=== PATIENT | female | born 1980 | race American Indian/Alaskan Native ===

== ENCOUNTER 2018-07-12 12:13 | Emergency (ER) | payer OTHER ==
[2018-07-12 13:33] LABS: Hematocrit 39.6 % (30.3-42.9); Hemoglobin 12.6 gm/dl (10.1-14.3); Mean Corpuscular HGB Conc 32 % (30-34); Mean Corpuscular Volume 79 fl (79-97); Platelet Count 328 K/mm3 (140-440); Red Blood Count 5.01 M/mm3 (3.65-5.03); Red Cell Distribution Width 16.4 % (13.2-15.2)
[2018-07-12 13:34] LABS: Mean Corpuscular Hemoglobin 25 pg (28-32)
[2018-07-12 13:52] LABS: BUN/Creatinine Ratio 11; Blood Urea Nitrogen 8 mg/dL (7-17); Calcium 8.9 mg/dL (8.4-10.2); Hemolysis Index 21
[2018-07-12] MEDS ORDERED: ZOFRAN IV ONE (13:55)
[2018-07-12] MEDS ORDERED: MORPHINE IV ONE (13:55)
--- NOTE | 2018-07-12 13:58 | Emergency Department Report ---
<GRAYSON JONES - Last Filed: 07/12/18 13:56> ED Abdominal Pain HPI - General Chief Complaint: Abdominal Pain Stated Complaint: SHARP RIGHT PAIN Time Seen by Provider: 07/12/18 13:51 Source: patient Mode of arrival: Ambulatory Limitations: No Limitations - History of Present Illness Initial Comments: Ms. Tsang has hx of HTN and reflux. Hx of myomectomy. Complaint: abdominal pain -: Gradual, This morning Location: RLQ Radiation: none Migration to: no migration Severity: moderate Quality: sharp Consistency: constant Worsens With: movement, other (walking) - Related Data Home Medications Medication Instructions Recorded Confirmed Last Taken Lisinopril [Zestril TAB] 5 mg PO QDAY 10/19/13 10/19/13 10/18/13 Pantoprazole [Protonix] 40 mg PO DAILY 10/19/13 10/19/13 10/18/13 Venlafaxine Xr [Effexor XR] 75 mg PO DAILY 10/19/13 10/19/13 10/18/13 Previous Rx's Medication Instructions Recorded Last Taken Type Ondansetron [Zofran] 4 mg PO Q6HR PRN #12 tablet 10/19/13 Unknown Rx oxyCODONE /ACETAMINOPHEN [Percocet 1 tab PO Q6HR PRN #14 tablet 10/19/13 Unknown Rx 5/325 mg] Acetaminophen/Codeine [Tylenol 1 tab PO Q6H PRN #12 tab 07/12/18 Unknown Rx /Codeine # 3 tab] Docusate Sodium [Colace] 100 mg PO BID PRN #14 capsule 07/12/18 Unknown Rx Ibuprofen [Motrin] 600 mg PO Q8H PRN #20 tablet 07/12/18 Unknown Rx Allergies Allergy/AdvReac Type Severity Reaction Status Date / Time Sulfa (Sulfonamide Allergy Rash Verified 07/12/18 12:36 Antibiotics) ED Review of Systems ROS: Stated complaint: SHARP RIGHT PAIN Other details as noted in HPI Comment: All other systems reviewed and negative Constitutional: denies: fever Gastrointestinal: abdominal pain, nausea. denies: vomiting ED Past Medical Hx - Past Medical History Hx Hypertension: Yes Hx Psychiatric Treatment: Yes - Surgical History Additional Surgical History: myomectomy - Social History Smoking Status: Never Smoker Substance Use Type: None - Medications Home Medications: Home Medications Medication Instructions Recorded Confirmed Last Taken Type Lisinopril [Zestril TAB] 5 mg PO QDAY 10/19/13 10/19/13 10/18/13 History Ondansetron [Zofran] 4 mg PO Q6HR PRN #12 tablet 10/19/13 Unknown Rx Pantoprazole [Protonix] 40 mg PO DAILY 10/19/13 10/19/13 10/18/13 History Venlafaxine Xr [Effexor XR] 75 mg PO DAILY 10/19/13 10/19/13 10/18/13 History oxyCODONE /ACETAMINOPHEN [Percocet 1 tab PO Q6HR PRN #14 tablet 10/19/13 Unknown Rx 5/325 mg] Acetaminophen/Codeine [Tylenol 1 tab PO Q6H PRN #12 tab 07/12/18 Unknown Rx /Codeine # 3 tab] Docusate Sodium [Colace] 100 mg PO BID PRN #14 capsule 07/12/18 Unknown Rx Ibuprofen [Motrin] 600 mg PO Q8H PRN #20 tablet 07/12/18 Unknown Rx ED Physical Exam - General Limitations: No Limitations General appearance: alert, in no apparent distress - Head Head exam: Present: atraumatic, normocephalic - Eye Eye exam: Present: normal appearance - ENT ENT exam: Present: mucous membranes moist - Neck Neck exam: Present: normal inspection - Respiratory Respiratory exam: Present: normal lung sounds bilaterally. Absent: respiratory distress - Cardiovascular Cardiovascular Exam: Present: regular rate, normal rhythm. Absent: systolic murmur, diastolic murmur, rubs, gallop - GI/Abdominal GI/Abdominal exam: Present: soft, tenderness (right lower quadrant), guarding ( voluntary). Absent: distended, rebound, rigid - Extremities Exam Extremities exam: Present: normal inspection - Back Exam Back exam: Present: normal inspection - Neurological Exam Neurological exam: Present: alert, oriented X3 - Psychiatric Psychiatric exam: Present: normal affect, normal mood - Skin Skin exam: Present: warm, dry, intact, normal color. Absent: rash ED Course Vital Signs 07/12/18 12:36 Temperature 98.8 F Pulse Rate 73 Respiratory 18 Rate Blood Pressure 155/91 O2 Sat by Pulse 100 Oximetry ED Medical Decision Making - Lab Data Result diagrams: 07/12/18 13:22 07/12/18 13:16 Laboratory Results - last 24 hr 07/12/18 07/12/18 13:16 13:22 WBC 3.7 L RBC 5.01 Hgb 12.6 Hct 39.6 MCV 79 MCH 25 L MCHC 32 RDW 16.4 H Plt Count 328 Sodium 135 L Potassium 3.5 L Chloride 100.5 Carbon Dioxide 21 L Anion Gap 17 BUN 8 Creatinine 0.7 Estimated GFR > 60 BUN/Creatinine Ratio 11 Glucose 87 Calcium 8.9 Critical care attestation.: If time is entered above; I have spent that time in minutes in the direct care of this critically ill patient, excluding procedure time. ED Disposition Clinical Impression: Fibroids Constipation Qualifiers: Constipation type: unspecified constipation type Qualified Code(s): K59.00 - Constipation, unspecified Abdominal pain Qualifiers: Abdominal location: right lower quadrant Qualified Code(s): R10.31 - Right lower quadrant pain Disposition: TO HOME OR SELFCARE Condition: Stable Instructions: Abdominal Pain (ED), Uterine Fibroids (ED), Acetaminophen/ Codeine (By mouth), Constipation (ED), High Fiber Diet (ED) Additional Instructions: Follow-up with a primary care/obgyn doctor in 3-5 days or if symptoms worsen and continue return to emergency room as soon as possible. Do not operate any machinery while taking Tylenol with codeine as this may cause drowsiness. Prescriptions: Acetaminophen/Codeine [Tylenol /Codeine # 3 tab] 1 tab PO Q6H PRN #12 tab PRN Reason: Pain , Severe (7-10) Docusate Sodium [Colace] 100 mg PO BID PRN #14 capsule PRN Reason: Constipation Ibuprofen [Motrin] 600 mg PO Q8H PRN #20 tablet PRN Reason: Pain Referrals: PRIMARY CAREMD [Referring] - 3-5 Days BHAVNA JACOME MD [Staff Physician] - 3-5 Days ESTELLA GUSMAN MD [Staff Physician] - 3-5 Days [facility] [Outside] - 3-5 Days Forms: Work/School Release Form(ED) <ARIAS AMES - Last Filed: 07/12/18 18:07> ED Physical Exam - GI/Abdominal GI/Abdominal exam: Present: tenderness, guarding ED Medical Decision Making - Lab Data Result diagrams: 07/12/18 13:22 07/12/18 13:16 - Medical Decision Making Patient was signed out to me by Dr. Robert V. for a pending CT scan results. As per Dr. Jones patient may have appendicitis with RLQ pain. Upon quick exam during discharge, patient stated that pain has resolved and subsided. Patient stated that pain started this morning only to the RLQ. Labs unremarkable. Patient is eating and drinking with no signs of nausea or vomiting. Patient was notified of the CT report with no questions or by the patient. Patient stated that she does feel much better and pain has resolved. Patient was notified of strict precatuions of appendictis symptoms and to return to the ED if symptoms occurs as soon as possible. Patient was also instructed to Follow- up with a primary care doctor in 3-5 days or if symptoms worsen and continue return to emergency room as soon as possible. At time of discharge, the patient does not seem toxic or ill in appearance. No acute signs of distress noted. Patient agrees to discharge treatment plan of care. No further questions noted by the patient. ED Disposition Is pt being admited?: No Does the pt Need Aspirin: No
[2018-07-12 13:59] LABS: Bacteria,Urine 1+ /HPF (Negative); Bilirubin,Urine NEG (Negative); Blood,Urine NEG (Negative); Color,Urine Straw (Yellow); Protein,Urine <15 mg/dL mg/dL (Negative); Urobilinogen,Urine < 2.0 mg/dL (<2.0)
[2018-07-12 14:04] LABS: HCG Qualitative,Urine Negative (Negative); WBC,Urine < 1.0 /HPF (0.0-6.0)
[2018-07-12] MEDS ORDERED: PERCOCET 5/325 PO ONE (14:10)
--- NOTE | 2018-07-12 17:31 | Cat Scan Report ---
FINAL REPORT EXAM: CT ABDOMEN PELVIS WO CON HISTORY: RLQ pain TECHNIQUE: Axial images were performed from the lung bases to the pubic symphysis. Multiplanar reformats are performed on the acquisition scanner. Total exam DLP 623.62 mGy-cm Comparison: None FINDINGS: Clear lung bases. Unremarkable unenhanced liver, spleen, pancreas, gallbladder, bilateral adrenal glands and bilateral kidneys. There is oral contrast in the stomach, small bowel, and colon to the level of the distal transverse colon. Normal appendix right lower quadrant has both air and contrast in it. Adjacent to the appendix, there is 1.5 x 1.5 centimeter right adnexal cystic lesion. There is a 2.7 x 2.3 centimeter left adnexal cystic lesion. Pelvic phleboliths. Rectosigmoid fecal retention. Small-bowel enterocele projecting in the bony pelvis deep behind the cul-de-sac. Minimally distended urinary bladder. Normally anteverted uterus. Age-appropriate prominent [facility] structures. There are small retroperitoneal lymph nodes. Imaged axial skeleton is unremarkable. The coronal reconstructed images demonstrate prominent bilateral adnexal and bilateral adnexal cysts. Uterus is lobular and slightly enlarged. There appears to be a Caesarean section calcified scar of the lower uterine segment. No free air or free fluid. IMPRESSION: Normal appendix right lower quadrant. Bilateral adnexal cystic lesions and prominent adnexal bilaterally. Anteverted lobular uterus with at least 1 serosal fundal fibroid identified. Recommend pelvic ultrasound. No definite free air or free fluid. Small bowel enterocele in the recto uterine pouch. Probable Caesarean section scar is calcified in the lower uterine segment.
[2018-07-12 18:32] VITALS: BP 141/83
== END 2018-07-12 18:28 | disposition home or self-care (01) ==
LOC: ED 12:13
DX: K59.00 Constipation, unspecified (principal); D25.9 Leiomyoma of uterus, unspecified; I10 Essential (primary) hypertension; Z88.2 Allergy status to sulfonamides
CPT/HCPCS: 36415; 74176; 80048; 81001; 81025; 85027; 99284; J2270; J2405

== ENCOUNTER 2019-07-20 07:38 | Observation (INO) | payer OTHER ==
[2019-07-20 08:39] LABS: Basophils % (Auto) 1.1 % (0.0-1.8); Eosinophils # (Auto) 0.1 K/mm3 (0.0-0.4); Eosinophils % (Auto) 2.8 % (0.0-4.3); Hematocrit 40.2 % (30.3-42.9); Hemoglobin 12.8 gm/dl (10.1-14.3); Lymphocytes # (Auto) 0.8 K/mm3 (1.2-5.4); Lymphocytes % (Auto) 28.6 % (13.4-35.0); Mean Corpuscular HGB Conc 32 % (30-34); Mean Corpuscular Volume 79 fl (79-97); Monocytes # (Auto) 0.2 K/mm3 (0.0-0.8); Platelet Count 336 K/mm3 (140-440); Red Blood Count 5.09 M/mm3 (3.65-5.03); Red Cell Distribution Width 17.4 % (13.2-15.2)
[2019-07-20 08:48] LABS: INR 0.98 (0.87-1.13)
[2019-07-20 08:49] LABS: Partial Thromboplastin Time 27.3 Sec. (24.2-36.6)
[2019-07-20 09:05] LABS: Alanine Aminotransferase 9 units/L (7-56); Albumin 4.8 g/dL (3.9-5); BUN/Creatinine Ratio 13; Blood Urea Nitrogen 9 mg/dL (7-17); Calcium 8.9 mg/dL (8.4-10.2); Hemolysis Index 3
--- NOTE | 2019-07-20 09:25 | Emergency Department Report ---
ED Chest Pain HPI - General Chief Complaint: Chest Pain Stated Complaint: CHEST PAIN Time Seen by Provider: 07/20/19 09:23 Source: patient Mode of arrival: Ambulatory Limitations: No Limitations - History of Present Illness Initial Comments: 38-year-old -[place] female presents to the emergency room complaining of midsternal chest pain that started last night. Patient reports that is worse with a deep breath. Patient states that she had her blood pressure checked at her job and it was 180/105 with a heart rate of 150. Patient also complained of a headache located in the back of her head. Patient reports that she feels weak and tired area patient reports that the chest pain is intermittent. She complains of shortness of breath with exertion. Nothing makes it better. Patient is not on control and has not recently traveled. Patient has no cancers. She does have an allergy to lisinopril which causes a cough. Patient has a past medical history of hypertension does not know what medication she is on an GERD which she reports on Protonix. Patient has a primary care provider at [facility]. She states that she thought her symptoms was temperature may have caught from the patient. 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 Complaint: chest pain -: Last night Onset: during exertion (sob) Pain Location: substernal Pain Radiation: neck Severity: moderate Consistency: intermittent Improves With: nothing Worsens With: inspiration Other Symptoms: palpitations. denies: cough, fever Aspirin use within the Past 7 Days: (0) No - Related Data On Oral Contraceptives: No Home Medications Medication Instructions Recorded Confirmed Last Taken Lisinopril [Zestril TAB] 5 mg PO QDAY 10/19/13 10/19/13 10/18/13 Pantoprazole [Protonix] 40 mg PO DAILY 10/19/13 10/19/13 10/18/13 Venlafaxine Xr [Effexor XR] 75 mg PO DAILY 10/19/13 10/19/13 10/18/13 Previous Rx's Medication Instructions Recorded Last Taken Type Ondansetron [Zofran] 4 mg PO Q6HR PRN #12 tablet 10/19/13 Unknown Rx oxyCODONE /ACETAMINOPHEN [Percocet 1 tab PO Q6HR PRN #14 tablet 10/19/13 Unknown Rx 5/325 mg] Acetaminophen/Codeine [Tylenol 1 tab PO Q6H PRN #12 tab 07/12/18 Unknown Rx /Codeine # 3 tab] Docusate Sodium [Colace] 100 mg PO BID PRN #14 capsule 07/12/18 Unknown Rx Ibuprofen [Motrin] 600 mg PO Q8H PRN #20 tablet 07/12/18 Unknown Rx Allergies Allergy/AdvReac Type Severity Reaction Status Date / Time Sulfa (Sulfonamide Allergy Rash Verified 07/12/18 12:36 Antibiotics) Heart Score - HEART Score History: Slightly suspicious Age: < 45 Risk factors: 1-2 risk factors Troponin: 1-3x normal limit ED Review of Systems ROS: Stated complaint: CHEST PAIN Other details as noted in HPI Respiratory: SOB with exertion Cardiovascular: chest pain ED Past Medical Hx - Past Medical History Previous Medical History?: Yes Hx Hypertension: Yes Hx Psychiatric Treatment: Yes - Surgical History Past Surgical History?: Yes Additional Surgical History: myomectomy - Social History Smoking Status: Current Some Day Smoker Substance Use Type: None - Medications Home Medications: Home Medications Medication Instructions Recorded Confirmed Last Taken Type Lisinopril [Zestril TAB] 5 mg PO QDAY 10/19/13 10/19/13 10/18/13 History Ondansetron [Zofran] 4 mg PO Q6HR PRN #12 tablet 10/19/13 Unknown Rx Pantoprazole [Protonix] 40 mg PO DAILY 10/19/13 10/19/13 10/18/13 History Venlafaxine Xr [Effexor XR] 75 mg PO DAILY 10/19/13 10/19/13 10/18/13 History oxyCODONE /ACETAMINOPHEN [Percocet 1 tab PO Q6HR PRN #14 tablet 10/19/13 Unknown Rx 5/325 mg] Acetaminophen/Codeine [Tylenol 1 tab PO Q6H PRN #12 tab 07/12/18 Unknown Rx /Codeine # 3 tab] Docusate Sodium [Colace] 100 mg PO BID PRN #14 capsule 07/12/18 Unknown Rx Ibuprofen [Motrin] 600 mg PO Q8H PRN #20 tablet 07/12/18 Unknown Rx ED Physical Exam - General Limitations: No Limitations General appearance: alert, in no apparent distress - Head Head exam: Present: atraumatic, normocephalic - Eye Eye exam: Present: normal appearance - ENT ENT exam: Present: mucous membranes moist - Neck Neck exam: Present: normal inspection, full ROM. Absent: tenderness, lymphadenopathy - Respiratory Respiratory exam: Present: normal lung sounds bilaterally. Absent: respiratory distress - Cardiovascular Cardiovascular Exam: Present: irregular rhythm - GI/Abdominal GI/Abdominal exam: Present: soft, normal bowel sounds. Absent: distended - Extremities Exam Extremities exam: Present: normal inspection, full ROM. Absent: tenderness - Back Exam Back exam: Present: normal inspection - Neurological Exam Neurological exam: Present: alert, oriented X3 - Psychiatric Psychiatric exam: Present: normal affect, normal mood - Skin Skin exam: Present: warm, dry, intact, normal color. Absent: rash ED Course Vital Signs 07/20/19 07/20/19 07:46 09:28 Temperature 97.6 F 97.5 F L Pulse Rate 87 72 Respiratory 18 14 Rate Blood Pressure 147/90 Blood Pressure 91/44 [Left] O2 Sat by Pulse 100 100 Oximetry ARTURO score - Arturo Score Age > 65: (0) No Aspirin use within the Past 7 Days: (0) No 3 or more CAD Risk Factors: (0) No ED Medical Decision Making - Lab Data Result diagrams: 07/20/19 08:07 07/20/19 08:07 - Radiology Data Radiology results: report reviewed Chest x-ray shows no acute findings - Medical Decision Making 38-year-old -[place] female presents to the emergency room complaining of midsternal chest pain that started last night. Patient reports that is worse with a deep breath. Patient states that she had her blood pressure checked at her job and it was 180/105 with a heart rate of 150. Patient also complained of a headache located in the back of her head. Patient reports that she feels weak and tired area patient reports that the chest pain is intermittent. She complains of shortness of breath with exertion. Nothing makes it better. Patient is not on control and has not recently traveled. Patient has no cancers. She does have an allergy to lisinopril which causes a cough. Patient has a past medical history of hypertension does not know what medication she is on an GERD which she reports on Protonix. Patient has a primary care provider at [facility] in [place]. She states that she thought her symptoms was temperature may have caught from the patient. 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 Critical care attestation.: If time is entered above; I have spent that time in minutes in the direct care of this critically ill patient, excluding procedure time. ED Disposition Condition: Stable
--- NOTE | 2019-07-20 09:31 | XRay Report ---
CHEST 2 VIEWS INDICATION / CLINICAL INFORMATION: Chest pain and shortness of breath since yesterday. Occasional cough without fever. COMPARISON: None available. FINDINGS: SUPPORT DEVICES: None. HEART / MEDIASTINUM: The heart size and pulmonary vasculature are normal. The aorta is normal in willie elliot. LUNGS / PLEURA: No significant pulmonary or pleural abnormality. No pneumothorax. ADDITIONAL FINDINGS: No significant additional findings. IMPRESSION: No acute findings. Signer Name: Kelton Vyas MD Signed: 07/20/2019 9:26 AM Workstation Name: [id number]
[2019-07-20] MEDS ORDERED: SODIUM CHLORIDE 0.9% 1000 ML 1,000 ML IV ONE (09:42)
[2019-07-20] MEDS ORDERED: MORPHINE 2 MG/1 ML INJ IV PRN (12:15)
[2019-07-20] MEDS ORDERED: ACETAMINOPHEN 325 MG TAB PO PRN (12:15)
[2019-07-20] MEDS ORDERED: ONDANSETRON 4 MG/2 ML INJ IV PRN (12:15)
[2019-07-20] MEDS ORDERED: ALBUTEROL 2.5 MG/3 ML NEBU IH PRN (12:15)
[2019-07-20] MEDS ORDERED: IBUPROFEN 600 MG TAB PO PRN (12:18)
[2019-07-20] MEDS ORDERED: NON-FORMULARY EACH (Ondansetron [Zofran Tab] 4 MG) PO PRN (12:18)
[2019-07-20] MEDS ORDERED: DOCUSATE SODIUM 100 MG CAP PO PRN (12:18)
[2019-07-20] MEDS ORDERED: oxyCODONE /ACETAMINOPHEN 5-325MG TAB PO PRN (12:18)
[2019-07-20] MEDS ORDERED: ACETAMINOPHEN W/CODEINE 300-30 MG TAB PO PRN (12:18)
--- NOTE | 2019-07-20 12:20 | History and Physical Report ---
History of Present Illness Chief complaint: My chest hurts History of present illness: 38 YO Female with Anxiety, GERD, HTN, Nicotine Dependence presents to ED for evaluation. Pt states that she experienced acute onset of pain in her chest that awoke her from sleep last night. Pt states that pain qas 6-7/10, intermittent, worsened with deep breathing. Pt awoke from sleep this morning and went to work with the same symptoms. Pt underwent a blood pressure check at [facility] and was found to have blood pressure of 180/105 and a heart rate in the 160's. Pt also reports decreased exercise tolerance, shortness of breath, dypsnea with exertion. Pt transported to [facility] via private vehicle. Pt seen and evaluated in ED and found to have Angina as well as symptoms consistent for diastolic CHF. Pt admitted to medical floor with remote telemetry. Cardiology consulted. No prior admission for review. All listed medication reconciled at time of admission. Pt denies fever, chills, NVD, Trauma, BRBPR, Productive cough, unintentional weight loss, night sweats, unilateral leg swelling, calf pain, hemoptysis, prolonged travel/immobility, skin rash, or recent ill contacts. Past History Past Medical History: other (see hpi) Past Surgical History: Other (myomectomy) Social history: , smoking. denies: alcohol abuse, prescription drug abuse Family history: hypertension Medications and Allergies Allergies Allergy/AdvReac Type Severity Reaction Status Date / Time Sulfa (Sulfonamide Allergy Rash Verified 07/12/18 12:36 Antibiotics) Home Medications Medication Instructions Recorded Confirmed Last Taken Type Pantoprazole [Protonix] 40 mg PO DAILY 10/19/13 07/20/19 07/19/19 08:00 History Active Meds: Active Medications Acetaminophen (Tylenol) 650 mg PO Q4H PRN PRN Reason: Pain MILD(1-3)/Fever >100.5/MAYERS Acetaminophen/Codeine Phosphate (Tylenol #3) 1 tab PO Q6H PRN PRN Reason: Pain , Severe (7-10) Albuterol (Proventil) 2.5 mg IH Q4HRT PRN PRN Reason: Shortness Of Breath Docusate Sodium (Colace) 100 mg PO BID PRN PRN Reason: Constipation Famotidine (Pepcid) 10 mg PO BID RHONDA Ibuprofen (Ibuprofen) 600 mg PO Q8H PRN PRN Reason: PAIN Lisinopril (Zestril) 5 mg PO QDAY RHONDA Miscellaneous Medication (Ondansetron [Zofran Tab]) 4 mg PO Q6HR PRN PRN Reason: Nausea Morphine Sulfate (Morphine) 2 mg IV Q4H PRN PRN Reason: Pain, Moderate (4-6) Ondansetron HCl (Zofran) 4 mg IV Q8H PRN PRN Reason: Nausea And Vomiting Oxycodone/Acetaminophen (Percocet 5/325) 1 tab PO Q6HR PRN PRN Reason: PAIN Pantoprazole Sodium (Protonix) 40 mg PO DAILY RHONDA Sodium Chloride (Sodium Chloride Flush Syringe 10 Ml) 10 ml IV BID RHONDA Sodium Chloride (Sodium Chloride Flush Syringe 10 Ml) 10 ml IV PRN PRN PRN Reason: LINE FLUSH Review of Systems Constitutional: no weight loss, no weight gain, no fever, no chills Ears, nose, mouth and throat: no ear pain, no ear discharge, no tinnitis, no decreased hearing, no nose pain, no nasal congestion Breasts: no change in shape, no swelling, no mass Cardiovascular: chest pain, rapid/irregular heart beat, dyspnea on exertion, decreased exercise tolerance, no edema, no syncope Respiratory: pleurisy, no cough, no cough with sputum, no excessive sputum Gastrointestinal: no abdominal pain, no nausea, no vomiting, no diarrhea, no constipation, no change in bowel habits Genitourinary Female: no pelvic pain, no flank pain, no menorrhagia, no dysuria, no urinary frequency, no urgency Rectal: no pain, no incontinence, no bleeding Musculoskeletal: no neck stiffness, no neck pain, no shooting arm pain, no arm numbness/tingling, no low back pain, no shooting leg pain, no leg numbness/tingling Integumentary: no rash, no pruritis, no redness, no wounds, no jaundice, no boils Neurological: no transient paralysis, no paralysis, no weakness, no parathesias, no numbness, no tingling, no seizures Psychiatric: anxiety, no memory loss, no change in sleep habits, no sleep disturbances, no insomnia, no change in appetite, no change in libido Endocrine: no cold intolerance, no heat intolerance, no polyphagia, no excessive thirst, no polydipsia, no polyuria, no nocturia, no excessive sweating Hematologic/Lymphatic: no easy bruising, no easy bleeding, no lymphadenopathy, no lymphedema Allergic/Immunologic: no urticaria, no wheezing, no persistent infections, no anaphylaxis Exam - Constitutional Vitals: Temp Pulse Resp BP Pulse Ox 97.5 F L 72 14 91/44 100 07/20/19 09:28 07/20/19 09:28 07/20/19 09:28 07/20/19 09:28 07/20/19 09:28 General appearance: Present: no acute distress, well-nourished - EENT Eyes: Present: PERRL ENT: hearing intact, clear oral mucosa - Neck Neck: Present: supple, normal ROM - Respiratory Respiratory effort: normal Respiratory: bilateral: CTA - Cardiovascular Heart Sounds: Present: S1 & S2. Absent: rub, click - Extremities Extremities: pulses symmetrical, No edema Peripheral Pulses: within normal limits - Abdominal General gastrointestinal: Present: soft, non-tender, non-distended, normal bowel sounds Female genitourinary: Present: normal - Integumentary Integumentary: Present: clear, warm, dry - Musculoskeletal Musculoskeletal: gait normal, strength equal bilaterally - Psychiatric Psychiatric: appropriate mood/affect, intact judgment & insight - Neurologic Neurologic: CNII-XII intact, moves all extremities Results - Labs CBC & Chem 7: 07/20/19 08:07 07/20/19 08:07 Labs: Abnormal lab results 07/20/19 07/20/19 Range/Units 08:07 08:07 WBC 2.8 L (4.5-11.0) K/mm3 RBC 5.09 H (3.65-5.03) M/mm3 MCH 25 L (28-32) pg RDW 17.4 H (13.2-15.2) % [place] % (Auto) 8.0 H (0.0-7.3) % Lymph # 0.8 L (1.2-5.4) K/mm3 Seg Neutrophils # 1.7 L (1.8-7.7) K/mm3 Total Protein 8.7 H (6.3-8.2) g/dL Assessment and Plan - Patient Problems (1) Angina at rest Current Visit: Yes Status: Acute Plan to address problem: serial cardiac enzymes, ekg, remote telemetry, cardiology consulted, PPI therapy (2) Diastolic CHF Current Visit: Yes Status: Acute Qualifiers: Heart failure chronicity: acute Qualified Code(s): I50.31 - Acute diastolic (congestive) heart failure Plan to address problem: BNP, D dimer, Echo, cardiology consulted, strict I/O, daily weight, supplemental oxygen, blood pressure control, (3) Anxiety Current Visit: Yes Status: Acute Plan to address problem: Ativan prn, supportive care, Outpatient psychiatry f/U care. (4) GERD (gastroesophageal reflux disease) Current Visit: Yes Status: Acute Qualifiers: Esophagitis presence: without esophagitis Qualified Code(s): K21.9 - Gastro-esophageal reflux disease without esophagitis Plan to address problem: PPI therapy, (5) Nicotine dependence Current Visit: Yes Status: Acute Qualifiers: Substance use status: in withdrawal Plan to address problem: +15 min smoking cessation counseling, supportive care. (6) DVT prophylaxis Current Visit: Yes Status: Acute Plan to address problem: SCD to BLE while in bed, Pt ambulatory
[2019-07-20] MEDS ORDERED: ONDANSETRON 4 MG ODT TAB PO PRN (12:45)
[2019-07-20 12:48] LABS: Amphetamine Screen,Urine PRESUMPTIVE NEGATIVE; Benzodiazepines Screen,Urine PRESUMPTIVE NEGATIVE; Cocaine Screen,Urine PRESUMPTIVE NEGATIVE; Methadone Screen,Urine PRESUMPTIVE NEGATIVE; Opiate Screen,Urine PRESUMPTIVE NEGATIVE
[2019-07-20 13:00] LABS: Cannabinoid Screen,Urine PRESUMPTIVE POSITIVE
[2019-07-20] MEDS ORDERED: NITROGLYCERIN 0.4 MG TAB SUBL SL PRN (13:51)
[2019-07-20 14:39] LABS: Chol/HDL Ratio 2.32 %
[2019-07-20] MEDS: ASPIRIN 300 MG RECT SUPP PR SCH (17:06)
[2019-07-20] MEDS: FAMOTIDINE 10 MG TAB PO SCH (21:37)
[2019-07-21] MEDS: PANTOPRAZOLE 40 MG TAB PO SCH (09:53)
[2019-07-21] MEDS ORDERED: LISINOPRIL 5 MG TAB PO SCH (10:00)
[2019-07-21] MEDS ORDERED: VENLAFAXINE XR 75 MG CAP PO SCH (10:00)
--- NOTE | 2019-07-21 10:01 | Consultation ---
History of Present Illness Consult date: 07/21/19 Consult reason: chest pain, congestive heart failure History of present illness: This is a 38 year old woman that is employed with [employer]. Patient reports experiencing palpitations, shortness of breath with diaphoresis while at work on yesterday. There was no syncope. Patient reports an ECG was done in the office with a reported heart rate of 160. Strips are not available for review. Patient was sent to the emergency department for further evaluation. While in the emergency department, patient also complains of chest pain. Patient describes chest pain that is worse with deep inspirations and position changes. She denies prior cardiac workup. Reports a history of hypertension and GERD. 12 lead ECG is sinus rhythm, no acute ischemic changes. Past History Social history: , smoking. denies: alcohol abuse, prescription drug abuse Family history: hypertension Medications and Allergies Allergies Allergy/AdvReac Type Severity Reaction Status Date / Time Sulfa (Sulfonamide Allergy Rash Verified 07/12/18 12:36 Antibiotics) Home Medications Medication Instructions Recorded Confirmed Last Taken Type Docusate Sodium [Colace CAP] 100 mg PO BID PRN #60 capsule 07/21/19 Unknown Rx Lisinopril [Zestril TAB] 5 mg PO QDAY #30 tablet 07/21/19 Unknown Rx Pantoprazole [Protonix TAB] 40 mg PO DAILY #30 07/21/19 Unknown Rx Active Meds: Active Medications Acetaminophen (Tylenol) 650 mg PO Q4H PRN PRN Reason: Pain MILD(1-3)/Fever >100.5/MAYERS Acetaminophen/Codeine Phosphate (Tylenol #3) 1 tab PO Q6H PRN PRN Reason: Pain , Severe (7-10) Albuterol (Proventil) 2.5 mg IH Q4HRT PRN PRN Reason: Shortness Of Breath Aspirin (Aspirin) 300 mg AK QDAY [facility] Last Admin: 07/20/19 17:06 Dose: Not Given Documented by: Docusate Sodium (Colace) 100 mg PO BID PRN PRN Reason: Constipation Famotidine (Pepcid) 10 mg PO BID [facility] Last Admin: 07/20/19 21:37 Dose: Not Given Documented by: Ibuprofen (Ibuprofen) 600 mg PO Q8H PRN PRN Reason: Pain, Moderate (4-6) Lisinopril (Zestril) 5 mg PO QDAY [facility] Morphine Sulfate (Morphine) 2 mg IV Q4H PRN PRN Reason: Pain, Moderate (4-6) Nitroglycerin (Nitrostat) 0.4 mg SL Q5M PRN PRN Reason: Chest Pain Ondansetron HCl (Zofran) 4 mg IV Q8H PRN PRN Reason: Nausea And Vomiting Ondansetron HCl (Zofran Odt) 4 mg PO Q6H PRN PRN Reason: Nausea And Vomiting Oxycodone/Acetaminophen (Percocet 5/325) 1 tab PO Q6HR PRN PRN Reason: Pain , Severe (7-10) Pantoprazole Sodium (Protonix) 40 mg PO DAILY [facility] Sodium Chloride (Sodium Chloride Flush Syringe 10 Ml) 10 ml IV BID [facility] Last Admin: 07/20/19 21:34 Dose: 10 ml Documented by: Sodium Chloride (Sodium Chloride Flush Syringe 10 Ml) 10 ml IV PRN PRN PRN Reason: LINE FLUSH Sodium Chloride (Sodium Chloride Flush Syringe 10 Ml) 10 ml IV PRN PRN PRN Reason: LINE FLUSH Venlafaxine HCl (Effexor Xr) 75 mg PO DAILY [facility] Physical Examination Vital Signs Pulse 81 07/20/19 07:43 General appearance: no acute distress HEENT: Positive: PERRL Neck: Positive: trachea midline Cardiac: Positive: Reg Rate and Rhythm Lungs: Positive: Normal Breath Sounds Neuro: Positive: Grossly Intact Extremities: Absent: edema Results 07/20/19 08:07 07/20/19 08:07 Lipids 07/20/19 Range/Units 08:07 Triglycerides 48 (2-149) mg/dL Cholesterol 163 (50-199) mg/dL HDL Cholesterol 70 H (40-59) mg/dL Cholesterol/HDL Ratio 2.32 % Assessment and Plan Chest pain Shortness of breath Palpitations Hypertension Lisinopril allergy
[2019-07-21] MEDS: FAMOTIDINE 10 MG TAB PO SCH ×2 (10:12→21:02)
--- NOTE | 2019-07-21 10:26 | Discharge Summary ---
Providers - Providers Date of Admission: 07/20/19 12:15 Attending physician: ELIJAH SANTAMARIA MD 07/20/19 Consult to Cardiac Rehabilitation [CONS] Routine Reason For Exam: Phase I 07/20/19 13:51 Consult to Cardiology [CONS] Routine Consulting Provider: DAINA POLO Reason For Exam: angina/chf Primary care physician: SAFETY COORDINATOR Hospitalization Condition: Stable Hospital course: 38-year-old woman with history of hypertension who presents to the hospital with chest pain Diagnosis Chest pain likely secondary to hypertensive urgency Hypertension with hypertensive urgency Nonadherence to REYNALDO inhibitor due to cough GERD Plan Cardiology input appreciated, nuclear stress test was negative Blood pressure improved today, switch from REYNALDO to arb, and documented drug reaction Continue PPI CT Angio chest negative, d-dimer negative, no further work-up indicated for VTE DVT prophylaxis early ambulation Disposition: - TO HOME OR SELFCARE Time spent for discharge: 35 minutes Core Measure Documentation - Palliative Care Palliative Care/ Comfort Measures: Not Applicable - Core Measures Any of the following diagnoses?: none Exam - Constitutional Vitals: Temp Pulse Resp BP Pulse Ox 98.0 F 64 18 129/78 99 07/21/19 05:53 07/21/19 05:53 07/21/19 05:53 07/21/19 09:54 07/21/19 05:53 General appearance: Present: no acute distress, well-nourished - EENT Eyes: Present: PERRL ENT: hearing intact, clear oral mucosa - Neck Neck: Present: supple, normal ROM - Respiratory Respiratory effort: normal Respiratory: bilateral: CTA - Cardiovascular Heart Sounds: Present: S1 & S2. Absent: rub, click - Extremities Extremities: pulses symmetrical, No edema Peripheral Pulses: within normal limits - Abdominal General gastrointestinal: Present: soft, non-tender, non-distended, normal bowel sounds Female genitourinary: Present: normal - Integumentary Integumentary: Present: clear, warm, dry - Musculoskeletal Musculoskeletal: gait normal, strength equal bilaterally - Psychiatric Psychiatric: appropriate mood/affect, intact judgment & insight - Neurologic Neurologic: CNII-XII intact, moves all extremities Plan Follow up with: PRIMARY CARE, [Primary Care Provider] - 3-5 Days Forms: Work/School Release Form Prescriptions: Docusate Sodium [Colace CAP] 100 mg PO BID PRN #60 capsule PRN Reason: Constipation Losartan [Cozaar] 12.5 mg PO QDAY #30 tablet Pantoprazole [Protonix TAB] 40 mg PO DAILY #30
[2019-07-21] MEDS: ASPIRIN 300 MG RECT SUPP PR SCH (11:24)
--- NOTE | 2019-07-21 15:01 | Cat Scan Report ---
CTA CHEST WITH IV CONTRAST INDICATION / CLINICAL INFORMATION: Shortness of breath, PE protocol. TECHNIQUE: Axial CT images were obtained through the chest after injection of Omnipaque 350 milligrams percent 1 00 cc IV contrast. 3 plane MIP and/or 3D reconstructions were produced. All CT scans at this location are performed using CT dose reduction for ALARA by means of automated exposure control. COMPARISON: None available. FINDINGS: PULMONARY ARTERIES: No pulmonary emboli. THORACIC AORTA: No significant abnormality. HEART: No significant abnormality. CORONARY ARTERIES: No significant calcification. PLEURA: No pleural effusion. No pneumothorax. LYMPH NODES: No significant adenopathy. LUNGS: No acute air space or interstitial disease. ADDITIONAL FINDINGS: None. UPPER ABDOMEN: No acute findings. SKELETAL STRUCTURES: No significant osseous abnormality. IMPRESSION: 1. No CT evidence for pulmonary embolism. 2. No acute findings. Signer Name: Brock Acosta MD Signed: 07/21/2019 2:57 PM Workstation Name: [id number]
--- NOTE | 2019-07-21 15:14 | Progress Note ---
Assessment and Plan Assessment and plan: 38-year-old woman with history of hypertension who presents to the hospital with chest pain Diagnosis Chest pain likely secondary to hypertensive urgency Hypertension with hypertensive urgency Nonadherence to REYNALDO inhibitor due to cough GERD Plan Cardiology input appreciated, for treadmill stress EKG tomorrow Blood pressure improved today, switch from REYNALDO to arb, and documented drug reaction Continue PPI CT Angio chest negative, d-dimer negative, no further work-up indicated for VTE DVT prophylaxis early ambulation History Interval history: Review of systems Constitutional: No fevers, no malaise, no joint pains CVS continues to have intermittent dull chest pain, 3-4 out of 10, substernal, nonradiating, no orthopnea, no pedal edema GI: No abdominal pain, no diarrhea, no vomiting, no constipation Respiratory: No shortness of breath, no wheezing, no coughing Hospitalist Physical - Physical exam Narrative exam: General.: Appears well, no distress, nontoxic HEENT: Moist mucous membranes, extraocular muscles intact, no lymphadenopathy Neck: supple Cardiac: S1-S2 heard Lungs: clear to auscultation bilaterally Abdomen: soft , nontender, nondistended, bowel sounds positive Extremities: no edema clubbing or cyanosis Skin: no rash or lesions Neurologic: no gross focal deficits Psych: calm, and cooperative - Constitutional Vitals: Temp Pulse Resp BP Pulse Ox 99.6 F 69 19 132/82 100 07/21/19 11:39 07/21/19 11:39 07/21/19 11:39 07/21/19 11:39 07/21/19 14:30 General appearance: Present: no acute distress Results - Labs CBC & Chem 7: 07/20/19 08:07 07/20/19 08:07 Labs: Laboratory Last Values WBC 2.8 K/mm3 (4.5-11.0) L 07/20/19 08:07 RBC 5.09 M/mm3 (3.65-5.03) H 07/20/19 08:07 Hgb 12.8 gm/dl (10.1-14.3) 07/20/19 08:07 Hct 40.2 % (30.3-42.9) 07/20/19 08:07 MCV 79 fl (79-97) 07/20/19 08:07 MCH 25 pg (28-32) L 07/20/19 08:07 MCHC 32 % (30-34) 07/20/19 08:07 RDW 17.4 % (13.2-15.2) H 07/20/19 08:07 Plt Count 336 K/mm3 (140-440) 07/20/19 08:07 Lymph % (Auto) 28.6 % (13.4-35.0) 07/20/19 08:07 [place] % (Auto) 8.0 % (0.0-7.3) H 07/20/19 08:07 Eos % (Auto) 2.8 % (0.0-4.3) 07/20/19 08:07 Baso % (Auto) 1.1 % (0.0-1.8) 07/20/19 08:07 Lymph # 0.8 K/mm3 (1.2-5.4) L 07/20/19 08:07 [place] # 0.2 K/mm3 (0.0-0.8) 07/20/19 08:07 Eos # 0.1 K/mm3 (0.0-0.4) 07/20/19 08:07 Baso # 0.0 K/mm3 (0.0-0.1) 07/20/19 08:07 Seg Neutrophils % 59.5 % (40.0-70.0) 07/20/19 08:07 Seg Neutrophils # 1.7 K/mm3 (1.8-7.7) L 07/20/19 08:07 PT 12.9 Sec. (12.2-14.9) 07/20/19 08:07 INR 0.98 (0.87-1.13) 07/20/19 08:07 APTT 27.3 Sec. (24.2-36.6) 07/20/19 08:07 D-Dimer < 135.00 ng/mlDDU (0-234) 07/20/19 08:07 Sodium 140 mmol/L (137-145) 07/20/19 08:07 Potassium 3.8 mmol/L (3.6-5.0) 07/20/19 08:07 Chloride 104.2 mmol/L (98-107) 07/20/19 08:07 Carbon Dioxide 22 mmol/L (22-30) 07/20/19 08:07 Anion Gap 18 mmol/L 07/20/19 08:07 BUN 9 mg/dL (7-17) 07/20/19 08:07 Creatinine 0.7 mg/dL (0.7-1.2) 07/20/19 08:07 Estimated GFR > 60 ml/min 07/20/19 08:07 BUN/Creatinine Ratio 13 % 07/20/19 08:07 Glucose 88 mg/dL (65-100) 07/20/19 08:07 Calcium 8.9 mg/dL (8.4-10.2) 07/20/19 08:07 Total Bilirubin 0.40 mg/dL (0.1-1.2) 07/20/19 08:07 AST 16 units/L (5-40) 07/20/19 08:07 ALT 9 units/L (7-56) 07/20/19 08:07 Alkaline Phosphatase 61 units/L (35-129) 07/20/19 08:07 Troponin T < 0.010 ng/mL (0.00-0.029) 07/20/19 19:48 Total Protein 8.7 g/dL (6.3-8.2) H 07/20/19 08:07 Albumin 4.8 g/dL (3.9-5) 07/20/19 08:07 Albumin/Globulin Ratio 1.2 % 07/20/19 08:07 Triglycerides 48 mg/dL (2-149) 07/20/19 08:07 Cholesterol 163 mg/dL (50-199) 07/20/19 08:07 LDL Cholesterol Direct 91 mg/dL (50-130) 07/20/19 08:07 HDL Cholesterol 70 mg/dL (40-59) H 07/20/19 08:07 Cholesterol/HDL Ratio 2.32 % 07/20/19 08:07 HCG, Qual Negative (Negative) 07/20/19 08:07 Urine Opiates Screen Presumptive negative 07/20/19 12:12 Urine Methadone Screen Presumptive negative 07/20/19 12:12 Ur Barbiturates Screen Presumptive negative 07/20/19 12:12 Ur Phencyclidine Scrn Presumptive negative 07/20/19 12:12 Ur Amphetamines Screen Presumptive negative 07/20/19 12:12 U Benzodiazepines Scrn Presumptive negative 07/20/19 12:12 Urine Cocaine Screen Presumptive negative 07/20/19 12:12 U Marijuana (THC) Screen Presumptive positive 07/20/19 12:12 Drugs of Abuse Note Disclamer 07/20/19 12:12 Active Medications - Current Medications Current Medications: Generic Name Dose Route Start Last Admin Trade Name Freq PRN Reason Stop Dose Admin Acetaminophen 650 mg 07/20/19 12:15 Tylenol PO Q4H PRN Pain MILD(1-3)/Fever >100.5/MAYERS Acetaminophen/Codeine Phosphate 1 tab 07/20/19 12:18 Tylenol #3 PO Q6H PRN Pain , Severe (7-10) Albuterol 2.5 mg 07/20/19 12:15 Proventil IH Q4HRT PRN Shortness Of Breath Docusate Sodium 100 mg 07/20/19 12:18 Colace PO BID PRN Constipation Famotidine 10 mg 07/20/19 22:00 07/21/19 10:12 Pepcid PO Not Given BID RHONDA Ibuprofen 600 mg 07/20/19 12:18 Ibuprofen PO Q8H PRN Pain, Moderate (4-6) Losartan Potassium 12.5 mg 07/22/19 10:00 Cozaar PO QDAY RHONDA Morphine Sulfate 2 mg 07/20/19 12:15 Morphine IV Q4H PRN Pain, Moderate (4-6) Nitroglycerin 0.4 mg 07/20/19 13:51 Nitrostat SL Q5M PRN Chest Pain Ondansetron HCl 4 mg 07/20/19 12:15 Zofran IV Q8H PRN Nausea And Vomiting Ondansetron HCl 4 mg 07/20/19 12:45 Zofran Odt PO Q6H PRN Nausea And Vomiting Oxycodone/Acetaminophen 1 tab 07/20/19 12:18 Percocet 5/325 PO Q6HR PRN Pain , Severe (7-10) Pantoprazole Sodium 40 mg 07/21/19 10:00 07/21/19 09:53 Protonix PO 40 mg DAILY RHONDA Administration Sodium Chloride 10 ml 07/20/19 22:00 07/21/19 10:05 Sodium Chloride Flush Syringe 10 Ml IV 10 ml BID RHODNA Administration Sodium Chloride 10 ml 07/20/19 12:15 Sodium Chloride Flush Syringe 10 Ml IV PRN PRN LINE FLUSH Sodium Chloride 10 ml 07/20/19 13:51 Sodium Chloride Flush Syringe 10 Ml IV PRN PRN LINE FLUSH
--- NOTE | 2019-07-22 09:19 | Progress Note ---
Assessment and Plan 1. Chest pain likely secondary to hypertensive urgency - CT chest is negative for PE. Echocardiogram shows normal left ventricular systolic function, ejection fraction 55%. No significant valvular lesions. Right heart chambers are normal in size, and no pulmonary hypertension. Treadmill stress test today showed [address] depression early on, but then resolved. Nuclear stress test to be performed. 2. Hypertension with hypertensive urgency - maximize antihypertensive therapy 3. Nonadherence to REYNALDO inhibitor due to cough 4. GERD - management per primary 5. history of rapid heart rate of 160s and palpitations suggestive of arrhythmia - unable to find documented strips of pre-hospital tachycardia. Consider for 30 day event monitor as an outpatient. Subjective Date of service: 07/22/19 Interval history: No acute events. Resting comfortably. No chest pain or SOB. Objective Vital Signs Temp Pulse Resp BP Pulse Ox 07/22/19 05:05 97.9 F 71 18 122/65 100 07/21/19 23:13 97.7 F 72 18 111/74 100 07/21/19 18:08 98.2 F 74 78 H 143/85 100 07/21/19 14:30 100 07/21/19 11:39 99.6 F 69 19 132/82 100 07/21/19 10:04 61 129/78 100 07/21/19 09:54 129/78 - Physical Examination HEENT: Positive: PERRL Neck: Positive: trachea midline Neuro: Positive: Grossly Intact Extremities: Absent: edema
[2019-07-22] MEDS ORDERED: LOSARTAN 25 MG TAB PO SCH (10:00)
[2019-07-22] MEDS ORDERED: REGADENOSON 0.4 MG/5 ML INJ IV ONE (10:16)
[2019-07-22] MEDS: PANTOPRAZOLE 40 MG TAB PO SCH (12:24)
[2019-07-22] MEDS: FAMOTIDINE 10 MG TAB PO SCH (12:25)
[2019-07-22 12:32] VITALS: BP 126/92
--- NOTE | 2019-07-26 00:55 | Treadmill Report ---
THALLIUM STRESS TEST LEFT VENTRICLE: Left ventricular chamber size is within normal spread. Perfusion study demonstrates homogeneous uptake of the tracer in all segments, no significant defects identified. Gated analysis demonstrates normal left ventricular systolic function, ejection fraction 63%. CONCLUSION: Normal myocardial perfusion study. JOB# [id number] CA/NTS
== END 2019-07-22 17:15 | disposition home or self-care (01) ==
LOC: ED 07:38 → 3A 12:15
PROVIDERS: ADMIT Internal Medicine; ATTEND Internal Medicine
DX: I20.8 Other forms of angina pectoris (principal); I11.0 Hypertensive heart disease with heart failure; I50.9 Heart failure, unspecified; F41.9 Anxiety disorder, unspecified; K21.9 Gastro-esophageal reflux disease without esophagitis; F17.200 Nicotine dependence, unspecified, uncomplicated
CPT/HCPCS: 36415; 71046; 71275; 78452; 80053; 80061; 80307; 84484; 84703; 85025; 85379; 85610; 85730; 93005; 93010; 93017; 93306; 99284; 99406; A9502; G0378; J2785; J7030; Q9967